=== PATIENT | female | born 1985 | race Hispanic/Latino ===

== ENCOUNTER 2016-07-05 03:31 | Emergency (ER) | payer MEDICAID ==
[2016-07-05 03:50] VITALS: RESP 18; TEMP 98.2
[2016-07-05] MEDS ORDERED: Sodium Chloride 0.9% 1,000 ML IV STA (04:13)
--- NOTE | 2016-07-05 04:18 | ED PDOC ---
Arrival/HPI - General Chief Complaint: Abdominal Pain Time Seen by Provider: 07/05/16 04:00 Historian: Patient - History of Present Illness Narrative History of Present Illness (Text): 07/05/16 04:15 Luda Solorzano is a 30 year old female, with a history of alcohol and substance abuse, presents to the emergency department complaining of 2 day duration of worsening abdominal pain. Patient states that symptoms are associated with multiple bouts of non-bloody, non-bilious vomit. Patient presented to [facility] yesterday for opiate detox. Patient was provided op detox center information upon discharge and was advised to follow up today. Denies any suicidal or homicidal ideation. Denies fever,chills, headache, dizziness, chest pain, shortness of breath, diarrhea, or any other complaints at this time. Time/Duration: < week (2 days ) Symptom Onset: Gradual Symptom Course: Worsening Activities at Onset: Light Context: Home Past Medical History - Provider Review Nursing Documentation Reviewed: Yes - Cardiac Hx Cardiac Disorders: No - Pulmonary Hx Respiratory Disorders: No - Neurological Hx Neurological Disorder: No - HEENT Hx HEENT Disorder: No - Renal Hx Renal Disorder: No - Endocrine/Metabolic Hx Endocrine Disorders: No Other/Comment: pituitary tumor - Hematological/Oncological Hx Blood Disorders: No - Integumentary Hx Dermatological Disorder: No - Musculoskeletal/Rheumatological Hx Osteoporosis: Yes Hx Rheumatoid Arthritis: Yes - Gastrointestinal Hx Gastrointestinal Disorders: No Hx Irritable Bowel: Yes Other/Comment: eating disorder - Genitourinary/Gynecological Hx Genitourinary Disorders: No - Psychiatric Hx Anxiety: Yes Hx Substance Use: Yes - Surgical History Hx Tonsillectomy: Yes - Anesthesia Hx Anesthesia: Yes Hx Anesthesia Reactions: No Hx Malignant Hyperthermia: No Family/Social History - Physician Review Nursing Documentation Reviewed: Yes Family/Social History: No Known Family HX Smoking Status: Current Some Days Smoker Hx Alcohol Use: No Hx Substance Use: Yes Allergies/Home Meds Allergies/Adverse Reactions: Allergies brompheniramine maleate [From Bromfed] Allergy (Verified 10/28/15 14:33) ANGIOEDEMA latex Allergy (Verified 10/28/15 14:33) ANGIOEDEMA phenylephrine HCl [From Bromfed] Allergy (Verified 10/28/15 14:33) ANGIOEDEMA prednisone Allergy (Verified 10/28/15 14:33) ANGIOEDEMA pseudoephedrine HCl [From Bromfed] Allergy (Verified 10/28/15 14:33) ANGIOEDEMA ketorolac Adverse Reaction (Verified 03/31/16 08:23) Swollen face all antibiotics except cillins Allergy (Uncoded 03/28/16 20:34) Home Medications: Home Meds Medication Instructions Recorded Confirmed Cyclobenzaprine [Cyclobenzaprine 10 mg PO TID 04/05/16 04/05/16 HCl] Docusate [Colace] 100 mg PO BID 04/05/16 04/05/16 Morphine Sulfate [Morphine Sulfate 100 mg PO TID 04/05/16 04/05/16 ER] Polyethylene Glycol 3350 [Miralax] 17 gm PO BID 04/05/16 04/05/16 oxyCODONE [oxyCODONE Immediate 30 mg PO QID 04/05/16 04/05/16 Release Tab] Review of Systems - Physician Review All systems were reviewed & negative as marked: Yes - Review of Systems Constitutional: Normal. absent: Fatigue, Fevers Respiratory: Normal. absent: SOB, Cough Cardiovascular: Normal. absent: Chest Pain Gastrointestinal: Abdominal Pain, Nausea, Vomiting. absent: Diarrhea Neurological: Normal. absent: Headache, Dizziness Psychiatric: Normal. absent: Suicidal Ideation Physical Exam Vital Signs Reviewed: Yes Vital Signs Temp Pulse Resp BP Pulse Ox 07/05/16 07:33 75 18 115/63 100 07/05/16 03:42 98.2 F 96 H 18 102/64 95 Temperature: Afebrile Blood Pressure: Normal Pulse: Regular Respiratory Rate: Normal Appearance: Positive for: Non-Toxic, Other (Emanciated ) Pain Distress: None Mental Status: Positive for: Alert and Oriented X 3 - Systems Exam Head: Present: Atraumatic, Normocephalic Pupils: Present: PERRL Conjunctiva: Present: Normal Respiratory/Chest: Present: Clear to Auscultation, Good Air Exchange. No: Respiratory Distress, Accessory Muscle Use Cardiovascular: Present: Regular Rate and Rhythm, Normal S1, S2. No: Murmurs Abdomen: Present: Normal Bowel Sounds. No: Tenderness, Distention, Peritoneal Signs Upper Extremity: Present: Normal Inspection. No: Cyanosis, Edema Lower Extremity: Present: Normal Inspection. No: Edema Neurological: Present: GCS=15, CN II-XII Intact, Speech Normal Skin: Present: Warm, Dry, Normal Color. No: Rashes Psychiatric: Present: Alert, Oriented x 3, Normal Insight, Normal Concentration Medical Decision Making ED Course and Treatment: 07/05/16 04:24 Impression: A 30 year old female who presents to the emergency department complaining of abdominal pain associated with vomiting for 2 days. Plan: -- CT abdomen pelvis -- Labs -- IV fluids -- Zofran -- HCG -- Urinalysis -- Reassess and disposition Progress Notes: Re-evaluation Time: 08:00 Reassessment Condition: Re-examined, Improved - Lab Interpretations Lab Results: 07/05/16 04:40 07/05/16 04:40 Lab Results 07/05/16 06:30: Urine Color Yellow, Urine Appearance Clear, Urine pH 7.0, Ur Specific [place] 1.015, Urine Protein Negative, Urine Glucose (UA) Negative, Urine Ketones Negative, Urine Blood Negative, Urine Nitrate Negative, Urine Bilirubin Negative, Urine Urobilinogen 0.2, Ur Leukocyte Esterase Small H, Urine RBC Negative, Urine WBC 2 - 5, Ur Epithelial Cells 6 - 8, Urine Bacteria Many, Urine Other Mucus, Urine HCG, Qual Negative 07/05/16 04:40: Sodium 138, Potassium 4.4, Chloride 97 L, Carbon Dioxide 32, Anion Gap 13, BUN 18, Creatinine 1.0, Est GFR ( Amer) > 60, Est GFR (Non- Af Amer) > 60, Random Glucose 109, Calcium 9.9, Total Bilirubin 0.4, AST 31, ALT 36, Alkaline Phosphatase 72, Total Protein 7.2, Albumin 4.3, Globulin 2.9, Albumin/Globulin Ratio 1.5, Lipase 58 07/05/16 04:40: WBC 5.4, RBC 2.89 L, Hgb 9.0 L, Hct 27.3 L, MCV 94.5, MCH 31.1, MCHC 33.0, RDW 13.9, Plt Count 268, MPV 9.1, Gran % 63.6, Lymph % (Auto) 24.4, [place] % (Auto) 9.3 H, Eos % (Auto) 2.0, Baso % (Auto) 0.7, Gran # 3.43, Lymph # 1.3, [place] # 0.5, Eos # 0.1, Baso # 0.04 I have reviewed the lab results: Yes - RAD Interpretation Radiology Orders: 07/05/16 04:24 ABD & PELVIS W/O PO OR IV CONT [CT] Stat Sexologist: Radiologist - Medication Orders Current Medication Orders: Discontinued Medications Sodium Chloride (Sodium Chloride 0.9%) 1,000 mls @ 100 mls/hr IV .Q10H STA Stop: 07/05/16 14:12 Last Admin: 07/05/16 04:43 Dose: 100 mls/hr Ondansetron HCl (Zofran Inj) 4 mg IVP STAT STA Stop: 07/05/16 04:14 Last Admin: 07/05/16 04:43 Dose: 4 mg - Scribe Statement The provider has reviewed the documentation as recorded by the Tello Lima Provider Attestation: All medical record entries made by the Tello were at my direction and personally dictated by me. I have reviewed the chart and agree that the record accurately reflects my personal performance of the history, physical exam, medical decision making, and the department course for this patient. I have also personally directed, reviewed, and agree with the discharge instructions and disposition. Disposition/Present on Arrival - Present on Arrival Any Indicators Present on Arrival: No History of DVT/PE: No History of Uncontrolled Diabetes: No Urinary Catheter: No History of Decub. Ulcer: No History Surgical Site Infection Following: None - Disposition Have Diagnosis and Disposition been Completed?: Yes Diagnosis: Cachexia, Opiate addiction Disposition: HOME/ ROUTINE Disposition Time: 08:00 Condition: GOOD Discharge Instructions (ExitCare): Acute Abdominal Pain (ED) Prescriptions: Polyethylene Glycol 3350 [Miralax] 17 gm PO DAILY #225 gm
[2016-07-05 04:45] LABS: ADD MANUAL DIFF? NO
[2016-07-05 04:53] LABS: BASO # 0.04 K/mm3 (0.0-2.0); BASO % 0.7 % (0.0-3.0); EOS # 0.1 (0.0-0.7); GRAN # 3.43 (1.4-6.5); GRAN % 63.6 % (50.0-68.0); HEMATOCRIT 27.3 % (36.0-48.0); LYMPH # 1.3 (1.2-3.4); LYMPH % 24.4 % (22.0-35.0); MEAN CELL VOLUME 94.5 fL (80.0-105.0); MEAN CORPUSCULAR HEMOGLOBIN 31.1 pg (25.0-35.0); MEAN PLATELET VOLUME 9.1 fl (7.0-11.0); MONO # 0.5 (0.1-0.6); MONO % 9.3 % (1.0-6.0); PLATELET COUNT 268 10^3/uL (120.0-450.0); RED CELL DISTRIBUTION WIDTH 13.9 % (11.5-14.5); WHITE BLOOD COUNT 5.4 10^3/ul (4.5-11.0)
[2016-07-05 04:59] LABS: ALB/GLOB RATIO 1.5 (1.1-1.8); ALKALINE PHOSPHATASE 72 U/L (38-133); ALT/SGPT 36 U/L (7-56); AST/SGOT 31 U/L (15-39); BILIRUBIN,TOTAL 0.4 mg/dL (0.2-1.3); BLOOD UREA NITROGEN 18 mg/dL (7-21); CALCIUM 9.9 mg/dL (8.4-10.5); CARBON DIOXIDE 32 mmol/L (21-33); CHLORIDE 97 mmol/L (98-107); GFR AFRICAN-AMERICAN > 60; GLUCOSE,RANDOM 109 mg/dL (70-110); LIPASE 58 U/L (23-300); POTASSIUM 4.4 mmol/L (3.6-5.0); SODIUM 138 mmol/L (132-148); TOTAL PROTEIN 7.2 g/dL (5.8-8.3)
[2016-07-05 07:38] LABS: URINE BILIRUBIN NEGATIVE (NEGATIVE); URINE BLOOD NEGATIVE (NEGATIVE); URINE GLUCOSE (UA) NEGATIVE (NEGATIVE); URINE KETONE NEGATIVE (NEGATIVE); URINE LEUKOCYTE ESTERASE SMALL Leu/uL (NEGATIVE); URINE PROTEIN NEGATIVE mg/dL (<30 mg/dL); URINE UROBILINOGEN 0.2 E.U./dL (<1 E.U./dL)
[2016-07-05 07:40] VITALS: BP 115/63; PULSE 75
[2016-07-05 07:43] LABS: URINE APPEARANCE CLEAR (CLEAR); URINE COLOR YELLOW (YELLOW)
[2016-07-05 07:47] VITALS: O2SAT 100
--- NOTE | 2016-07-05 07:54 | CT ---
EXAM: CT Abdomen and Pelvis Without Intravenous Contrast CLINICAL HISTORY: 30 years old, female; Pain; Abdominal pain; Generalized; Additional info: Abd pain TECHNIQUE: Axial computed tomography images of the abdomen and pelvis without intravenous contrast. This CT exam was performed using one or more of the following dose reduction techniques: automated exposure control, adjustment of the mA and/or kV according to patient size, and/or use of iterative reconstruction technique. Coronal and sagittal reformatted images were created and reviewed. COMPARISON: CT - ABD PELVIS W/O PO OR IV CONT 07/24/2015 10:03:06 AM FINDINGS: Lower thorax: There is minimal bibasilar atelectasis. 3 mm subpleural nodule at the left base on series 2, image 23. ABDOMEN: Liver: There are no focal liver lesions present. Gallbladder and bile ducts: The gallbladder is contracted but otherwise normal. No calcified stones. No ductal dilation. Pancreas: The pancreas is normal. No ductal dilation. Spleen: The spleen is normal. Adrenals: The adrenal glands are normal. Kidneys and ureters: The kidneys are normal. No obstructing stones. No hydronephrosis. Stomach and bowel: The stomach is normal. Colonic constipation is present. There is no evidence of intestinal obstruction. No mucosal thickening. Appendix: A normal appendix is identified. PELVIS: Bladder: Bladder is partially distended and grossly unremarkable. No stones. Reproductive: The uterus is normal. ABDOMEN and PELVIS: Intraperitoneal space: There is small pelvic ascites, nonspecific. There is no free intraperitoneal air. Bones/joints: 2 screws traverse the right femoral neck securing an old femoral neck fracture. There are mild degenerative changes present. There is moderate diffuse osteopenia. No dislocation. Soft tissues: Unremarkable. Vasculature: The aorta is normal. No abdominal aortic aneurysm. Lymph nodes: There is no evidence of lymphadenopathy. IMPRESSION: No acute findings.
[2016-07-05 07:59] LABS: URINE RBC NEGATIVE /hpf (0-2)
[2016-07-05 08:00] LABS: URINE BACTERIA MANY (NEG)
== END 2016-07-05 08:18 | disposition home or self-care (01) ==
LOC: ED 03:31
DX: F11.20 Opioid dependence, uncomplicated (principal); R64 Cachexia
CPT/HCPCS: 74176; 80053; 81001; 83690; 84703; 85025; 96374; 99283; J2405; J7040

== ENCOUNTER 2017-04-30 00:15 | Emergency (ER) | payer MEDICAID ==
--- NOTE | 2017-04-30 00:38 | ED PDOC ---
Arrival/HPI - General Time Seen by Provider: 04/30/17 00:30 Historian: Patient - History of Present Illness Narrative History of Present Illness (Text): 04/30/17 00:38 Luda Solorzano is a 31 year old female, whose past medical history includes opiate dependence, chronic back pain/chronic pain syndrome, and anorexia nervosa , who presents to the Emergency department brought in by EMS accompanied by mother for overdose. Patient states she recently came off opiates and was started on Suboxone today. Patient apparently took an excess of 12-14 tablets, having confused the dosage given to her by her PMD. Patient states medication does not help as much as she hoped, but states she feels fine otherwise. Patient is awake, alert, and oriented x3. PMD was concerned with the number of tablets patient took and referred patient to the ER for overnight admission. Patient to be treated with Toradol for pain. Patient denies any suicidal/ homicidal ideation, fever, chills, chest pain, shortness of breath, nausea, vomiting, diarrhea, urinary symptoms, back pain, neck pain, headache, dizziness , trauma/injury, or any other complaints. Symptom Onset: Gradual Symptom Course: Unchanged Activities at Onset: Light Context: Home Past Medical History - Provider Review Nursing Documentation Reviewed: Yes - Infectious Disease Hx of Infectious Diseases: None - Cardiac Hx Cardiac Disorders: No Hx Hypertension: No - Pulmonary Hx Respiratory Disorders: Yes Hx Pneumonia: Yes (02/2017) - Neurological Hx Neurological Disorder: No Hx Seizures: No - HEENT Hx HEENT Disorder: No - Renal Hx Renal Disorder: No - Endocrine/Metabolic Hx Endocrine Disorders: Yes Other/Comment: pituitary tumor - Hematological/Oncological Hx Blood Disorders: No - Integumentary Hx Dermatological Disorder: No - Musculoskeletal/Rheumatological Hx Rheumatoid Arthritis: Yes - Gastrointestinal Hx Gastrointestinal Disorders: Yes Hx Constipation: Yes Hx Irritable Bowel: Yes Other/Comment: eating disorder - Genitourinary/Gynecological Hx Genitourinary Disorders: Yes Hx Sexually Transmitted Diseases: Yes - Psychiatric Hx Substance Use: No - Surgical History Hx Tonsillectomy: Yes - Anesthesia Hx Anesthesia: Yes Hx Anesthesia Reactions: No Hx Malignant Hyperthermia: No Family/Social History - Physician Review Nursing Documentation Reviewed: Yes Family/Social History: Unknown Family HX Smoking Status: Heavy Smoker > 10 Cigarettes Daily Hx Alcohol Use: No Hx Substance Use: No Substance used: pain pills Allergies/Home Meds Allergies/Adverse Reactions: Allergies brompheniramine maleate [From Bromfed] Allergy (Verified 04/30/17 00:46) ANGIOEDEMA latex Allergy (Verified 04/30/17 00:46) ANGIOEDEMA phenylephrine HCl [From Bromfed] Allergy (Verified 04/30/17 00:46) ANGIOEDEMA prednisone Allergy (Verified 04/30/17 00:46) ANGIOEDEMA pseudoephedrine HCl [From Bromfed] Allergy (Verified 04/30/17 00:46) ANGIOEDEMA Sulfa (Sulfonamide Antibiotics) Allergy (Verified 04/30/17 00:46) ANGIOEDEMA all antibiotics except cillins Allergy (Mild, Uncoded 04/30/17 00:46) RASH Home Medications: Home Meds Medication Instructions Recorded Confirmed Furosemide [Lasix] 40 mg PO DAILY 03/21/17 04/30/17 Buprenorphine Hydrochloride 2 mg PO Q4H 04/30/17 04/30/17 [Subutex] Review of Systems - Patients Enrolled in Collections Director Initiative [X]: A conversation was conducted with the primary medical doctor. - Physician Review All systems were reviewed & negative as marked: Yes - Review of Systems Constitutional: Normal. absent: Fevers Eyes: Normal ENT: Normal Respiratory: Normal. absent: SOB, Cough Cardiovascular: Normal. absent: Chest Pain Gastrointestinal: Normal. absent: Abdominal Pain, Diarrhea, Nausea, Vomiting Genitourinary Female: Normal. absent: Dysuria, Frequency, Hematuria, Urine Output Changes Musculoskeletal: Normal. absent: Back Pain, Neck Pain Skin: Normal. absent: Rash Neurological: Normal. absent: Headache, Dizziness Endocrine: Normal Hemo/Lymphatic: Normal Psychiatric: Normal Physical Exam Vital Signs Reviewed: Yes Vital Signs Pulse Resp BP Pulse Ox 04/30/17 04:27 66 18 105/76 98 04/30/17 00:54 75 20 98 Temperature: Afebrile Blood Pressure: Normal Pulse: Regular Respiratory Rate: Normal Appearance: Positive for: Non-Toxic, Comfortable, Other (Emaciated) Pain Distress: None Mental Status: Positive for: Alert and Oriented X 3 - Systems Exam Head: Present: Atraumatic, Normocephalic Pupils: Present: PERRL Extroacular Muscles: Present: EOMI Conjunctiva: Present: Normal Mouth: Present: Moist Mucous Membranes Neck: Present: Normal Range of Motion Respiratory/Chest: Present: Clear to Auscultation, Good Air Exchange. No: Respiratory Distress, Accessory Muscle Use Cardiovascular: Present: Regular Rate and Rhythm, Normal S1, S2. No: Murmurs Abdomen: Present: Normal Bowel Sounds. No: Tenderness, Distention, Peritoneal Signs Back: Present: Normal Inspection Upper Extremity: Present: Normal Inspection. No: Cyanosis, Edema Lower Extremity: Present: Normal Inspection. No: Edema Neurological: Present: GCS=15, CN II-XII Intact, Speech Normal Skin: Present: Warm, Dry, Normal Color. No: Rashes Psychiatric: Present: Alert, Oriented x 3, Normal Insight, Normal Concentration Medical Decision Making ED Course and Treatment: 04/30/17 00:38 Impression: 31 year old female brought in after accidentally taking 12-14 tablets of Suboxone after confusing dosage. Plan: -- EKG -- Chest X-ray -- Labs, alcohol level -- Urinalysis, urine drug screen -- IV fluids -- Reassess and disposition Prior Visits: Notes and results from previous visits were reviewed. Progress Notes: Reviewed EKG, NSR at 69 bpm. Non-specific T wave changes. 04/30/17 03:55 CXR reviewed, shows no acute processes. 04/30/17 04:03 Case discussed with medical office asst travel services professional, who is aware and agrees with plan. Paged farm demonstrator. 04/30/17 04:[address] Sheth, farm demonstrator, who is aware and agrees to evaluate pt for possible ICU admission. 04/30/17 04:[address] Sheth, present in Emergency department to evaluate pt, states pt can go to Telemetry observation for suboxone overdose. - Lab Interpretations Lab Results: 04/30/17 01:23 04/30/17 01:23 Lab Results 04/30/17 01:23: Alcohol, Quantitative < 10 04/30/17 01:23: Salicylates < 1 L, Acetaminophen 24.0 H 04/30/17 01:23: Sodium 142, Potassium 2.9 L* D, Chloride 94 L, Carbon Dioxide 39 H, Anion Gap 11, BUN 17, Creatinine 0.6 L, Est GFR ( Amer) > 60, Est GFR (Non-Af Amer) > 60, Random Glucose 113 H, Calcium 8.9, Total Bilirubin 0.2, AST 87 H, ALT 71 H, Alkaline Phosphatase 73, Total Protein 6.5, Albumin 3.5, Globulin 3.0, Albumin/Globulin Ratio 1.2 04/30/17 01:23: WBC 4.7, RBC 3.77, Hgb 10.4 L, Hct 32.4 L, MCV 85.9, MCH 27.6, MCHC 32.1, RDW 15.9 H, Plt Count 193, MPV 10.3, Gran % 56.1, Lymph % (Auto) 31.4 , [place] % (Auto) 11.0 H, Eos % (Auto) 1.3 L, Baso % (Auto) 0.2, Gran # 2.61, Lymph # (Auto) 1.5, [place] # (Auto) 0.5, Eos # (Auto) 0.1, Baso # (Auto) 0.01 I have reviewed the lab results: Yes - RAD Interpretation Radiology Orders: 04/30/17 00:46 CHEST PORTABLE [RAD] Stat Assembly Worker: ED Physician - EKG Interpretation Interpreted by ED Physician: Yes Type: 12 lead EKG - Medication Orders Current Medication Orders: Discontinued Medications Diphenhydramine HCl (Benadryl) 25 mg IVP ONCE ONE Stop: 04/30/17 02:04 Last Admin: 04/30/17 02:07 Dose: 25 mg IVP Administration Document 04/30/17 02:07 SS (Rec: 04/30/17 02:07 SS [id number]) Charges for Administration # of IVP Administrations 1 Sodium Chloride (Sodium Chloride 0.9%) 1,000 mls @ 999 mls/hr IV .Q1H1M STA Stop: 04/30/17 01:47 Last Admin: 04/30/17 01:39 Dose: 999 mls/hr eMAR Start Stop Document 04/30/17 01:39 SS (Rec: 04/30/17 01:40 SS [id number]) Intravenous Solution Start Date 04/30/17 Start Time 01:39 End Date 04/30/17 End time 02:39 Total Infusion Time 60 Ketorolac Tromethamine (Toradol) 30 mg IVP ONCE ONE Stop: 04/30/17 01:41 Last Admin: 04/30/17 01:46 Dose: 30 mg MAR Pain Assessment Document 04/30/17 01:46 SS (Rec: 04/30/17 01:47 [id number]) Pain Reassessment Is this a pain reassessment? No Sleep Is patient sleeping during reassessment? No Presence of Pain Presence of Pain Yes Pain Scale Used Pain Scale Used Numeric Location Pain Location Body Site Back IVP Administration Document 04/30/17 01:46 SS (Rec: 04/30/17 01:47 [id number]) Charges for Administration # of IVP Administrations 1 Potassium Chloride (Potassium Chloride Oral Soln) 40 meq PO STAT STA Stop: 04/30/17 03:29 Last Admin: 04/30/17 03:50 Dose: 40 meq - Scribe Statement The provider has reviewed the documentation as recorded by the Andrewibbest Bowen All medical record entries made by the Andrewibbest were at my direction and personally dictated by me. I have reviewed the chart and agree that the record accurately reflects my personal performance of the history, physical exam, medical decision making, and the department course for this patient. I have also personally directed, reviewed, and agree with the discharge instructions and disposition. Disposition/Present on Arrival - Present on Arrival Any Indicators Present on Arrival: No History of DVT/PE: Yes History of Uncontrolled Diabetes: No Urinary Catheter: No History of Decub. Ulcer: No History Surgical Site Infection Following: None - Disposition Have Diagnosis and Disposition been Completed?: Yes Diagnosis: Drug overdose, Anorexia nervosa Disposition: HOSPITALIZED Disposition Time: 04:47 Patient Plan: Observation Condition: STABLE
[2017-04-30] MEDS ORDERED: Sodium Chloride 0.9% 1,000 ML IV STA ×2 (00:47→04:44)
[2017-04-30 01:35] LABS: BASO # 0.01 K/mm3 (0.0-2.0); BASO % 0.2 % (0.0-3.0); EOS # 0.1 (0.0-0.7); EOS % 1.3 % (1.5-5.0); GRAN # 2.61 (1.4-6.5); GRAN % 56.1 % (50.0-68.0); HEMOGLOBIN 10.4 g/dL (12.0-16.0); LYMPH # 1.5 (1.2-3.4); LYMPH % 31.4 % (22.0-35.0); MEAN CELL VOLUME 85.9 fl (80.0-105.0); MEAN CORPUSCULAR HEMOGLOBIN 27.6 pg (25.0-35.0); MEAN CORPUSCULAR HGB CONC 32.1 g/dl (31.0-37.0); MEAN PLATELET VOLUME 10.3 fl (7.0-11.0); MONO # 0.5 (0.1-0.6); RBC 3.77 10^6/uL (3.5-6.1); RED CELL DISTRIBUTION WIDTH 15.9 % (11.5-14.5); WHITE BLOOD COUNT 4.7 10^3/ul (4.5-11.0)
[2017-04-30 01:45] LABS: SALICYLATE < 1 mg/dL (2.0-20.0)
[2017-04-30] MEDS ORDERED: DiphenhydrAMINE 50 mg/ml Inj IVP ONE (02:03)
[2017-04-30 02:25] LABS: ALB/GLOB RATIO 1.2 (1.1-1.8); ALBUMIN 3.5 g/dL (3.0-4.8); ALT/SGPT 71 U/L (7-56); AST/SGOT 87 U/L (14-36); BLOOD UREA NITROGEN 17 mg/dL (7-21); CALCIUM 8.9 mg/dL (8.4-10.5); GFR AFRICAN-AMERICAN > 60; GFR NON-AFRICAN AMERICAN > 60
[2017-04-30] MEDS ORDERED: Potassium Chloride 20 mEq/15 ml LIQ UD PO STA (03:28)
--- NOTE | 2017-04-30 04:45 | CP.PCM.CON ---
Addendum entered and electronically signed by Lexa Jeffries DO 04/30/17 06: 25: Although patient denies Acetaminophen ingestion, level was elevated. The coags are not a reliable source of liver function as patient states she is on Warfarin for DVT treatment. We will start NAC protocol at this time. Original Note: <Lexa Jeffries - Last Filed: 04/30/17 04:52> History of Present Illness - History of Present Illness History of Present Illness: 31 year old female with past medical history of anorexia nervosa, fibromyalgia, RA, and left lower extremity DVT on warfarin presents to the hospital for suboxone overdose. Patient was started on suboxone today by her PMD. Patient states she took 12-14 pills of the suboxone as she was unsure of the dosage. Patient denies suicidal ideation. Patient states once the PMD became aware of this, he referred patient to the hospital for further monitoring in the setting of drug overdose. On presentation, patient states she feels fine with no new complaints. Patient does mention her chronic back and hip pain, but no signs of respiratory depression or change in mental status. Patient denies chest pain, shortness of breath, nausea, vomiting, diarrhea, fever, chills, dysuria, changes in vision, fatigue, constipation, headache, dizziness. Past medical history: anorexia nervosa, fibromyalgia, RA, and left lower extremity DVT Surgical history: Hip fracture repair Family history: Noncontributory Social history: Smokes 2 ppd x 2 years. Denies alcohol or illicit drug use. Lives with mother. Allergies: Latex, Phenylephrine, please see full list in chart Medications: Unknown [facility]acy: [facility] Review of Systems - Review of Systems Review of Systems: 12 point ROS as per HPI, otherwise negative Past Patient History - Infectious Disease Hx of Infectious Diseases: None - Past Medical History & Family History Past Medical History?: Yes - Past Social History Smoking Status: Heavy Smoker > 10 Cigarettes Daily - CARDIAC Hx Cardiac Disorders: No Hx Hypertension: No - PULMONARY Hx Respiratory Disorders: Yes Hx Pneumonia: Yes (02/2017) - NEUROLOGICAL Hx Neurological Disorder: No Hx Seizures: No - HEENT Hx HEENT Problems: No - RENAL Hx Chronic Kidney Disease: No - ENDOCRINE/METABOLIC Hx Endocrine Disorders: Yes Other/Comment: pituitary tumor - HEMATOLOGICAL/ONCOLOGICAL Hx Blood Disorders: No - INTEGUMENTARY Hx Dermatological Problems: No - MUSCULOSKELETAL/RHEUMATOLOGICAL Hx Rheumatoid Arthritis: Yes - GASTROINTESTINAL Hx Gastrointestinal Disorders: Yes Hx Constipation: Yes Hx Irritable Bowel: Yes Other/Comment: eating disorder - GENITOURINARY/GYNECOLOGICAL Hx Genitourinary Disorders: Yes Hx Sexually Transmitted Disorders: Yes - PSYCHIATRIC Hx Substance Use: No - SURGICAL HISTORY Hx Tonsillectomy: Yes - ANESTHESIA Hx Anesthesia: Yes Hx Anesthesia Reactions: No Hx Malignant Hyperthermia: No Meds Allergies/Adverse Reactions: Allergies Allergy/AdvReac Type Severity Reaction Status Date / Time brompheniramine maleate Allergy ANGIOEDEMA Verified 04/30/17 00:46 [From Bromfed] latex Allergy ANGIOEDEMA Verified 04/30/17 00:46 phenylephrine HCl Allergy ANGIOEDEMA Verified 04/30/17 00:46 [From Bromfed] prednisone Allergy ANGIOEDEMA Verified 04/30/17 00:46 pseudoephedrine HCl Allergy ANGIOEDEMA Verified 04/30/17 00:46 [From Bromfed] Sulfa (Sulfonamide Allergy ANGIOEDEMA Verified 04/30/17 00:46 Antibiotics) all antibiotics except Allergy Mild RASH Uncoded 04/30/17 00:46 cillins Physical Exam - Constitutional Appears: Non-toxic, No Acute Distress, Cachectic - Head Exam Head Exam: ATRAUMATIC, NORMAL INSPECTION, NORMOCEPHALIC - Eye Exam Eye Exam: EOMI, Normal appearance Additional comments: Temporal wasting - ENT Exam ENT Exam: Mucous Membranes Moist, Normal Exam - Respiratory Exam Respiratory Exam: Clear to Auscultation Bilateral, NORMAL BREATHING PATTERN. absent: Rales, Rhonchi, Wheezes - Cardiovascular Exam Cardiovascular Exam: RRR, +S1, +S2 - GI/Abdominal Exam GI & Abdominal Exam: Normal Bowel Sounds, Soft. absent: Tenderness - Extremities Exam Extremities exam: Positive for: normal inspection. Negative for: calf tenderness, pedal edema - Neurological Exam Neurological exam: Alert, CN II-XII Intact, Oriented x3 - Psychiatric Exam Psychiatric exam: Normal Affect, Normal Mood - Skin Skin Exam: Intact, Normal Color, Warm Results - Vital Signs Recent Vital Signs: Last Vital Signs Temp Pulse 66 04/30/17 04:27 Resp 18 04/30/17 04:27 BP 105/76 04/30/17 04:27 Pulse Ox 98 04/30/17 04:27 - Labs Result Diagrams: 04/30/17 01:23 02/19/18 01:23 Labs: Laboratory Results - last 24 hr 04/30/17 04/30/17 04/30/17 01:23 01:23 01:23 WBC 4.7 RBC 3.77 Hgb 10.4 L Hct 32.4 L MCV 85.9 MCH 27.6 MCHC 32.1 RDW 15.9 H Plt Count 193 MPV 10.3 Gran % 56.1 Lymph % (Auto) 31.4 [place] % (Auto) 11.0 H Eos % (Auto) 1.3 L Baso % (Auto) 0.2 Gran # 2.61 Lymph # (Auto) 1.5 [place] # (Auto) 0.5 Eos # (Auto) 0.1 Baso # (Auto) 0.01 Sodium 142 Potassium 2.9 L* D Chloride 94 L Carbon Dioxide 39 H Anion Gap 11 BUN 17 Creatinine 0.6 L Est GFR ( Amer) > 60 Est GFR (Non-Af Amer) > 60 Random Glucose 113 H Calcium 8.9 Total Bilirubin 0.2 AST 87 H ALT 71 H Alkaline Phosphatase 73 Total Protein 6.5 Albumin 3.5 Globulin 3.0 Albumin/Globulin Ratio 1.2 Salicylates < 1 L Acetaminophen 24.0 H Alcohol, Quantitative 04/30/17 01:23 WBC RBC Hgb Hct MCV MCH MCHC RDW Plt Count MPV Gran % Lymph % (Auto) [place] % (Auto) Eos % (Auto) Baso % (Auto) Gran # Lymph # (Auto) [place] # (Auto) Eos # (Auto) Baso # (Auto) Sodium Potassium Chloride Carbon Dioxide Anion Gap BUN Creatinine Est GFR ( Amer) Est GFR (Non-Af Amer) Random Glucose Calcium Total Bilirubin AST ALT Alkaline Phosphatase Total Protein Albumin Globulin Albumin/Globulin Ratio Salicylates Acetaminophen Alcohol, Quantitative < 10 Assessment & Plan - Assessment and Plan (Free Text) Plan: 31 year old female with past medical history of anorexia nervosa, fibromyalgia, RA, and left lower extremity DVT on warfarin presents with suboxone overdose. Patient currently hemodynamically stable with no signs of respiratory distress. Patient does not meet criteria for ICU admission at this time. Poison control recommends supportive therapy, as per discussion with ED physician. At this time , we will recommend admission to telemetry with continuos cardiac rhythm monitoring. Patient will also benefit from fluid hydration and replenishment of electrolytes. Patient will also benefit from psychiatry consult as she is severely malnourished and cachetic. Repeat labs in AM and continue to monitor closely. If patient's status begins to deteriorate, please reconsult ICU as needed. Mervin, PGY-2 <Meryl DUKES,Alexx - Last Filed: 04/30/17 07:37> Meds - Medications Medications: Current Medications Sodium Chloride (Sodium Chloride 0.9%) 1,000 mls @ 100 mls/hr IV .Q10H STA Stop: 04/30/17 14:43 Last Admin: 04/30/17 05:08 Dose: 100 mls/hr Potassium Chloride (Potassium Chloride 20 Meq/100 Ml) 20 meq in 100 mls @ 50 mls/hr IVPB ONCE ONE Stop: 04/30/17 08:20 Acetylcysteine 4,285 mg/ (Dextrose) 121.425 mls @ 121.425 mls/hr IVPB .Q1H ONE PRN Reason: Protocol Stop: 04/30/17 08:59 Acetylcysteine 1,428 mg/ (Dextrose) 257.14 mls @ 64.285 mls/hr IV .Q4H ONE PRN Reason: Protocol Stop: 04/30/17 12:59 Acetylcysteine 2,857 mg/ (Dextrose) 514.285 mls @ 32.143 mls/hr IV .Q16H ONE PRN Reason: Protocol Stop: 05/01/17 04:59 Results - Vital Signs Recent Vital Signs: Last Vital Signs Temp 98.0 F 04/30/17 06:25 Pulse 75 04/30/17 06:25 Resp 18 04/30/17 06:25 BP 120/78 04/30/17 06:25 Pulse Ox 98 04/30/17 06:25 - Labs Result Diagrams: 04/30/17 01:23 04/30/17 01:23 Attending/Attestation - Attestation I have personally seen and examined this patient.: Yes I have fully participated in the care of the patient.: Yes I have reviewed all pertinent clinical information: Yes Notes (Text): I agree with the ICU consult note completed by the resident physician with the following additions and/or changes: -The patient is a 31 year old woman with a history of anorexia nervosa, fibromyalgia, RA, and LLE DVT (on Warfarin) who may have accidentally overdosed on Suboxone yesterday. The patient was confused with the dosing regimen for Suboxone and cannot definitively say how many pills she ingested. She denies any symptoms and came to the ED for monitoring, upon the advice of her PMD. She denies any recent acetaminophen (or acetaminophen containing meds) intake. However, ED labs show a slightly elevated acetaminophen level. Her total bilirubin level was normal and her coag's are still pending. Regardless, because she takes her INR level won't accurately reflect her synthetic liver function anyway. In light of the elevated acetaminophen level alongside the uncertainty of her ingestion and a likely unreliable INR result, we recommend starting N-acetylcysteine treatment per protocol (orders placed). Also, we have ordered repeat LFT's and acetaminophen levels approximately 12 hours after the initial set were drawn. However, because the patient is asymptomatic with normal vitals, she doesn't require ICU level of care at this time and can receive IV N-acetylcysteine on the telemetry wills (confirmed with nursing grounds supervisor). In the event her condition changes or deteriorates, please feel free to re-consult at that time. Thank you.
[2017-04-30] MEDS ORDERED: ACETYLCYSTEINE IV ONE ×5 (06:14→13:00)
[2017-04-30] MEDS ORDERED: WATER IV ONE ×5 (06:14→13:00)
[2017-04-30] MEDS ORDERED: DEXTROSE 5% IV ONE ×5 (06:14→13:00)
[2017-04-30 07:05] VITALS: TEMP 98
[2017-04-30 07:07] VITALS: BMI 12.3
[2017-04-30] MEDS ORDERED: WATER IVPB ONE (08:00)
[2017-04-30] MEDS ORDERED: ACETYLCYSTEINE IVPB ONE (08:00)
[2017-04-30] MEDS ORDERED: DEXTROSE 5% IVPB ONE (08:00)
[2017-04-30 09:10] LABS: HEMOGLOBIN 10.5 g/dL (12.0-16.0); MEAN CELL VOLUME 87.7 fl (80.0-105.0); MEAN CORPUSCULAR HEMOGLOBIN 26.9 pg (25.0-35.0); MEAN CORPUSCULAR HGB CONC 30.7 g/dl (31.0-37.0); MEAN PLATELET VOLUME 10.2 fl (7.0-11.0); RBC 3.9 10^6/uL (3.5-6.1); WHITE BLOOD COUNT 4.1 10^3/ul (4.5-11.0)
[2017-04-30 09:35] LABS: INR 1.64 (0.93-1.08); PROTHROMBIN TIME 19.1 SECONDS (9.4-12.5)
[2017-04-30 09:37] LABS: BLOOD UREA NITROGEN 16 mg/dL (7-21); CALCIUM 8.5 mg/dL (8.4-10.5); GFR AFRICAN-AMERICAN > 60; GFR NON-AFRICAN AMERICAN > 60
[2017-04-30 09:38] LABS: BARBITURATES, UR NEGATIVE (NEGATIVE); BENZODIAZEPINES, UR NEGATIVE (NEGATIVE); OPIATES, UR POSITIVE (NEGATIVE); PHENCYCLIDINE, UR NEGATIVE (NEGATIVE)
--- NOTE | 2017-04-30 09:46 | RAD ---
HISTORY: overdose COMPARISON: No prior. FINDINGS: LUNGS: No active pulmonary disease. The lungs are hyperinflated PLEURA: No significant pleural effusion identified, no pneumothorax apparent. CARDIOVASCULAR: Normal. OSSEOUS STRUCTURES: No significant abnormalities. VISUALIZED UPPER ABDOMEN: Normal. OTHER FINDINGS: None. IMPRESSION: No active disease.
[2017-04-30] MEDS ORDERED: SUBUTEX 8 MG SL SCH ×2 (12:15→18:00)
[2017-04-30 12:21] VITALS: RESP 15
[2017-04-30 12:22] VITALS: BP 132/84; PULSE 54; O2SAT 98
--- NOTE | 2017-04-30 16:33 | US ---
HISTORY: Leg pain and swelling. Evaluate for DVT PHYSICIAN(S): Cristian Silva MD. TECHNIQUE: Duplex sonography and color-flow Doppler with graded compression were used to evaluate the deep venous systems of both lower extremities. FINDINGS: The visualized deep venous systems of both lower extremities are sonographically normal and compressible. Normal wave forms and augmentation are seen. There is no sonographic evidence for deep venous thrombosis in the visualized segments of both lower extremities. IMPRESSION: No sonographic evidence for deep venous thrombosis in the visualized segments of both lower extremities.
[2017-04-30 16:50] LABS: HEPATITIS B SURFACE AG Negative (NEGATIVE)
[2017-04-30 16:56] LABS: HEPATITIS A IGM NEGATIVE (NEGATIVE); HEPATITIS B CORE AB NEGATIVE (NEGATIVE)
[2017-04-30 17:07] LABS: HEPATITIS C ANTIBODY NEGATIVE (NEGATIVE)
--- NOTE | 2017-04-30 21:45 | CARD ---
APPROVED REPORT EKG Measurement Heart [id number] <Conclusion> Normal sinus rhythm Rightward axis Nonspecific T wave abnormality Abnormal ECG
== END 2017-04-30 13:19 | disposition left against medical advice (07) ==
LOC: ED 00:15 → UNDOADMOB 04:42 → ERH 04:42 → OBSVTOIN 09:14 → INTOOBSV 09:14
DX: T40.4X1A Poisoning by other synthetic narcotics, accidental (unintentional), initial encounter (principal); Y92.009 Unspecified place in unspecified non-institutional (private) residence as the place of occurrence of the external cause; F50.00 Anorexia nervosa, unspecified; M06.9 Rheumatoid arthritis, unspecified; F17.210 Nicotine dependence, cigarettes, uncomplicated; M79.7 Fibromyalgia; Z86.718 Personal history of other venous thrombosis and embolism; Z79.01 Long term (current) use of anticoagulants
CPT/HCPCS: 71045; 80053; 80074; 80320; 80324; 80329; 80345; 80346; 80349; 80353; 80358; 80361; 83992; 85025; 85027; 85610; 93005; 93970; 96361; 96374; 96375; 96376; 99285; J0132; J1200; J1885; J3480; J7040